=== PATIENT | male | born 1955 | race Asian ===

== ENCOUNTER → 2020-02-04 09:31 | Outpatient (BNVA) | payer OTHER, SELFPAY | PROVIDERS: PCP Internal Medicine; Referring Provider Internal Medicine; Visit Provider Orthopaedic Surgery | DX: S83.242D Other tear of medial meniscus, current injury, left knee, subsequent encounter (principal); M25.462 Effusion, left knee | CPT/HCPCS: 20610; 99212; J1100 ==

== ENCOUNTER 2020-03-04 14:27 | Outpatient (REF) | payer OTHER, SELFPAY ==
[2020-03-04 16:07] LABS: MANUAL DIFF FLAG NO
[2020-03-04 16:12] LABS: Basophils Percent Auto 0.2 % (0-2); Eosinophils Absolute Auto 0.1 X10*3/uL (0.0-0.4); Eosinophils Percent Auto 1.7 % (0-4); Hematocrit 48.9 % (42-52); Hemoglobin 15.7 g/dl (14.0-18.0); Imm Gran Abs Auto 0.03 X10*3/uL (0.00-0.03); Imm Gran Pct Auto 0.4 % (0.0-0.4); Lymphocytes Absolute Auto 1.2 X10*3/uL (1.2-4.9); Lymphocytes Percent Auto 14.2 % (20-40); Mean Corpuscular HGB Conc 32.1 g/dl (31.0-36.0); Mean Corpuscular Hemoglobin 30.4 pg (27.0-33.0); Mean Corpuscular Volume 94.6 fL (80-98); Mean Platelet Volume 9.1 fL (9.4-12.4); Monocytes Absolute Auto 0.3 X10*3/uL (0.1-1.2); Monocytes Percent Auto 3.1 % (2-11); Neutrophils Absolute Auto 6.6 X10*3/uL (2.0-8.3); Neutrophils Percent Auto 80.4 % (45-73); Platelet Count 294 X10*3/uL (160-400); Red Blood Count 5.17 X10*6/uL (4.60-5.80); Red Cell Distribution Width 12.7 % (11.0-16.0); White Blood Count 8.2 X10*3/uL (4.8-10.8)
[2020-03-05 17:07] LABS: Immunoglobulin E 138 kU/L (<OR=114)
== END 2020-03-04 14:28 | disposition home or self-care (01) ==
LOC: HO.LAB 14:27
PROVIDERS: PCP Internal Medicine; Referring Provider Internal Medicine; Visit Provider Internal Medicine
DX: J45.50 Severe persistent asthma, uncomplicated (principal); T78.40XA Allergy, unspecified, initial encounter
CPT/HCPCS: 36415; 82785; 85025; 99202

== ENCOUNTER 2020-03-18 08:51 | Outpatient (REF) | payer OTHER, SELFPAY ==
--- NOTE | 2020-03-18 17:34 | PFT_ITS ---
INDICATIONS: Asthma. SPIROMETRY: The FEV1 to FVC of 48% with FEV1 of 1.56 L, which is 45% predicted, an FVC of 3.27 L which is 70% predicted with a maximum voluntary ventilation of 41% predicted. LUNG VOLUMES: Total lung capacity of 82% predicted. DIFFUSION CAPACITY: DLCO 62% predicted. COMPARISONS: None available. INTERPRETATION: There is an obstructive ventilatory defect consistent with severe COPD. The patient does have a significant response to bronchodilators and does have a history of asthma suggesting asthma, COPD, overlap syndrome. There is also moderate to severe decrease in maximum voluntary ventilation secondary to likely deconditioning. Lung volumes demonstrate low normal total lung capacity and mild to moderate decrease in the diffusion capacity. Clinical correlation warranted. It demonstrates mild to moderate diffusion impairment. COMPARISONS: None. Michael Limon MD MR/MODL / [id number]
== END 2020-03-18 08:52 | disposition home or self-care (01) ==
LOC: HO.RESP 08:51
PROVIDERS: Visit Provider Internal Medicine
DX: J45.50 Severe persistent asthma, uncomplicated (principal)
CPT/HCPCS: 94060; 94727; 94729; 99212

== ENCOUNTER 2020-06-17 06:15 | Outpatient (REF) | payer OTHER, SELFPAY ==
[2020-06-17 07:46] LABS: Glucose Fasting 110 mg/dL (60-99)
== END 2020-06-17 06:16 | disposition home or self-care (01) ==
LOC: HO.LAB 06:15
PROVIDERS: PCP Internal Medicine; Visit Provider Internal Medicine
DX: R63.1 Polydipsia (principal)
CPT/HCPCS: 36415; 82947

== ENCOUNTER 2020-06-19 10:28 | Outpatient (REF) | payer OTHER, SELFPAY ==
[2020-06-19 11:25] LABS: Glucose Urine UA NEG (NEG); Leukocyte Esterase Urine NEG (NEG); Nitrite Urine NEG (NEG); Urine Blood NEG (NEG); Urine Ketones NEG (NEG); Urine Protein NEG (NEG-TRACE)
[2020-06-19 11:26] LABS: Appearance Urine CLEAR; Color Urine YELLOW
[2020-06-19 12:14] LABS: Estimated Average Glucose 117 mg/dL; Hemoglobin A1c % 5.7 %
[2020-06-19 12:17] LABS: Alanine Aminotransferase 26 U/L (0-40); Albumin Level 4.7 g/dL (3.5-5.0); Alkaline Phosphatase 47 U/L (39-117); Anion Gap 17 (12-20); Aspartate Amino Transferase 28 U/L (5-37); Bilirubin Total 1.2 mg/dL (0.0-1.0); Blood Urea Nitrogen 17 mg/dL (9-16); Calcium 9.7 mg/dL (8.4-10.2); Carbon Dioxide 26 mmol/L (22-29); Chloride 103 mmol/L (96-108); Estimated Glomerular Filt Rate > 60; Glucose Random 90 mg/dL (60-115); Potassium 4.7 mmol/L (3.3-5.1); Sodium 141 mmol/L (135-145); Total Protein 7.7 g/dL (6.5-8.0)
[2020-06-19 12:18] LABS: Creatinine Urine 62.65 mg/dL; Microalbumin Urine < 5.0 mg/L
[2020-06-19 12:39] LABS: Prostate Specific Antigen 1.71 ng/mL (<0.05-4.0); TSH reflex Free T4 0.72 uIU/mL (0.32-4.0)
== END 2020-06-19 10:29 | disposition home or self-care (01) ==
LOC: HO.LAB 10:28
PROVIDERS: PCP Internal Medicine; Visit Provider Internal Medicine
DX: E03.9 Hypothyroidism, unspecified (principal); I10 Essential (primary) hypertension; R63.1 Polydipsia; R35.8 Other polyuria; R51.9 Headache, unspecified; Z12.5 Encounter for screening for malignant neoplasm of prostate
CPT/HCPCS: 36415; 80053; 81003; 82043; 83036; 84153; 84443

== ENCOUNTER → 2020-10-14 10:59 | Outpatient (BNVA) | payer MEDICARE, OTHER, SELFPAY | PROVIDERS: Visit Provider Physician Assistant | DX: S83.242D Other tear of medial meniscus, current injury, left knee, subsequent encounter (principal) | CPT/HCPCS: 99212 ==

== ENCOUNTER → 2022-09-14 14:35 | Outpatient (BNVA) | payer MEDICARE, SELFPAY | PROVIDERS: Visit Provider Nurse Practitioner Family | DX: J44.1 Chronic obstructive pulmonary disease with (acute) exacerbation (principal) | CPT/HCPCS: 94640; 99212 ==

== ENCOUNTER 2023-07-07 09:28 | Outpatient (REF) | payer MEDICARE, SELFPAY ==
--- NOTE | ~2023-07-07 | XR_ITS ---
EXAMINATION: XR SHOULDER, RIGHT CLINICAL INFORMATION: Pain COMPARISON: None available. TECHNIQUE: AP external rotation, Grashey, scapular Y, and axillary views of the right shoulder. FINDINGS: The bones and soft tissues are normal. No fracture. Glenohumeral and acromioclavicular alignment is anatomic with normal joint space. No abnormal soft tissue calcifications. XR/XR shoulder RT min 2V IMPRESSION: Normal right shoulder.
== END 2023-07-07 09:29 | disposition home or self-care (01) ==
LOC: HO.HOSX 09:28
PROVIDERS: Visit Provider Physician Assistant
DX: M25.511 Pain in right shoulder (principal); M75.101 Unspecified rotator cuff tear or rupture of right shoulder, not specified as traumatic; R73.03 Prediabetes
CPT/HCPCS: 73030; 99212

== ENCOUNTER 2023-07-07 10:16 | Outpatient (AMB) | payer MEDICARE, SELFPAY ==
--- NOTE | 2023-07-07 10:19 | MHC.OFFVIS ---
Intake Vital Signs 07/07/23 10:28 Height 5 ft 10 in Weight 190 lb BMI 27.3 Handedness Right Intake Visit Reasons: New Prob - RT shoulder pain Intake Note: Leydi is a 67 year old right hand dominant male who presents today for a evaluation of his right shoulder pain. Patient reports ongoing/ off and on pain for about 2 months. He states that he woke up with pain, no history of injury. He states that his pain starts on the anterior aspect of the shoulder, yet when he moves a certain way his pain goes to the back of the shoulder. Patient informed me that his pain first started with moving down to his elbow and down his arm. Allergies Seasonal Allergies Allergy (Mild, Verified 07/07/23 10:31) sneezing and itchiness HPI New Prob - RT shoulder pain HPI Details 67-year-old male who presents in the office today for an evaluation of right shoulder pain. Patient reports intermittent pain for the past 2 months. He states he woke up with the pain and does not recall any known injury. He claims the pain is on along the anterior aspect of the right shoulder, but does states increased pain with certain movement; these movements cause radiating pain to the back of his shoulder. Patient states when the pain started it would radiate down to his right elbow and down the arm. [facility] Medical History Allergic rhinitis Allergies Asthma Asthma-COPD overlap syndrome Chronic GERD Hypertension, essential Hypothyroidism Lipid disorder Tear of medial meniscus of left knee Surgical History No pertinent past surgical history Family History Father No problems noted. Mother No problems noted. Brother No problems noted. Sister No problems noted. Sister No problems noted. Sister No problems noted. Son No problems noted. Daughter No problems noted. Social History (Updated 07/07/23 @ 10:32 by Donte Limon) Alcohol intake: never Patient Tobacco Use Status: Never used Tobacco Current occupational status: retired Current occupation: Right Handed Review of Systems Const All systems reviewed & are unremarkable except as noted in HPI and below Physical Exam Vital Signs: BMI result Body Mass Index 27.3 Const General: cooperative, healthy appearing and no acute distress Resp Effort & Inspection: normal respiratory effort and able to speak in complete sentences Cardio Rate: regular rate Peripheral pulses: Peripheral pulses 2+ throughout GI Palpation (GI): Soft to palpation Skin Lesions: no lesions Rashes: no rashes Extrem Other: Right shoulder: Forward flexion to end range. Abduction to 90 degrees with pain. Able to reach T-12 with pain. Pain with cross-body reach. Negative empty can. Negative drop arm. NVI. Assessment & Plan Assessment & Plan (1) Painful arc syndrome of right shoulder: Code(s): M75.101 - Unspecified rotator cuff tear or rupture of right shoulder, not specified as traumatic (2) Pre-diabetes: Code(s): R73.03 - Prediabetes Plan Mr. Valle is a 67-year-old male who presents in the office today for an evaluation of right shoulder pain. Patient reports intermittent pain for the past 2 months. He states he woke up with the pain and does not recall any known injury. He claims the pain is on along the anterior aspect of the right shoulder, but does states increased pain with certain movement; these movements cause radiating pain to the back of his shoulder. Patient states when the pain started it would radiate down to his right elbow and down the arm. We discussed the role of cortisone injections which he would like to move forward with. However, at this time due to latter-day reasons he is fasting and is unable to have this done today. He would like to return after his fasting is over. A referral to physical therapy to work on ROM and modalities with strengthening was ordered today. Follow up will be when the patient is ready to call and schedule a cortisone injection, or sooner if needed. X-rays of the right shoulder which were obtained while in the office today and were reviewed by me, Diana Fry PA-C, revealed no acute fracture or dislocation. Orders: Orders XR shoulder RT min 2V Today M25.519 - Pain in unspecified shoulder PT Evaluation and Treatment Today M75.101 - Unspecified rotator cuff tear or rupture of right shoulder, not specified as traumatic Patient Instructions: Scribed by Anahi Kimble medical office supervisor, for Diana Fry PA-C on 07/07/2023 at 10:22 am, EST. Coding Level of Care Code New Pt Level 4 (92988) Diagnoses Painful arc syndrome of right shoulder M75.101 Pre-diabetes R73.03
[2023-07-07 10:28] VITALS: BMI 27.3
== END 2023-07-07 11:06 | disposition home or self-care (01) ==
PROVIDERS: Visit Provider Physician Assistant
DX: M75.101 Unspecified rotator cuff tear or rupture of right shoulder, not specified as traumatic (principal); R73.03 Prediabetes
CPT/HCPCS: 99214

== ENCOUNTER 2023-07-29 09:19 | Outpatient (AMB) | payer MEDICARE, SELFPAY ==
--- NOTE | 2023-07-29 09:25 | A.OFFVIS_ITS ---
Intake Intake Visit Reasons: right shoulder cortisone injection Intake Note: Leydi is a 67 year old right hand dominant male who presents today for a cortisone injection for his right shoulder. Allergies Seasonal Allergies Allergy (Mild, Verified 07/29/23 09:30) sneezing and itchiness HPI right shoulder cortisone injection HPI Details 67-year-old right hand dominant male who presents in the office today for a follow up of right shoulder pain. I last saw the patient in the office on 07/07/2023, when we discussed moving forward with cortisone injections. A referral for PT was also placed at this time. [facility] Medical History Allergic rhinitis Allergies Asthma Asthma-COPD overlap syndrome Chronic GERD Hypertension, essential Hypothyroidism Lipid disorder Tear of medial meniscus of left knee Surgical History No pertinent past surgical history Family History Father No problems noted. Mother No problems noted. Brother No problems noted. Sister No problems noted. Sister No problems noted. Sister No problems noted. Son No problems noted. Daughter No problems noted. Social History (Updated 07/07/23 @ 10:32 by Donte Limon) Alcohol intake: never Patient Tobacco Use Status: Never used Tobacco Current occupational status: retired Current occupation: Right Handed Review of Systems Const All systems reviewed & are unremarkable except as noted in HPI and below Physical Exam Const General: cooperative, healthy appearing and no acute distress Resp Effort & Inspection: normal respiratory effort and able to speak in complete sentences Cardio Rate: regular rate Peripheral pulses: Peripheral pulses 2+ throughout GI Palpation (GI): Soft to palpation Skin Lesions: no lesions Rashes: no rashes Extrem Other: Right shoulder: Forward flexion to end range. Abduction to 90 degrees with pain. Able to reach T-12 with pain. Pain with cross-body reach. Negative empty can. Negative drop arm. NVI. Office Procedures Joint Injection/Drain Joint Injection/Drain Primary Site: right shoulder Prep: site was prepped using aseptic technique, ethochloride spray was applied and injection warnings given Injected: 80 mg of, DepoMedrol, with 8 mL of (2% plain lido ) and in the lundberg bcromial space Approach Used: posterolateral Procedure: The patient tolerated the procedure well, but had some pain with the injection and there was some relief with the local anesthesia Coding 18260 - Large joint Procedure code (CPT) selection complete Assessment & Plan Assessment & Plan (1) Painful arc syndrome of right shoulder: Code(s): M75.101 - Unspecified rotator cuff tear or rupture of right shoulder, not specified as traumatic (2) Pre-diabetes: Code(s): R73.03 - Prediabetes Plan Mr. Valle is a 67-year-old right hand dominant male who presents in the office today for a follow up of right shoulder pain. I last saw the patient in the office on 07/07/2023, when we discussed moving forward with cortisone injections. A referral for PT was also placed at this time. The patient was offered a cortisone injection in the right shoulder with 80 mg of DepoMedrol. The patient was explained the risk, benefits, and alternatives to receiving this injection. After receiving consent for the injection, the patient had the procedure done while in office today. The patient tolerated the procedure well with no complications. Due to the patient?s history of prediabetes, they were instructed to monitor his blood glucose level. The patient was informed that they could see a rise in their numbers and if the numbers became too high, they were instructed to call their PCP. The patient was also informed that they could have facial flushing as a side effect of the injection but this will pass. Follow up will be PRN, or sooner if needed. Patient Instructions: Scribed by Anahi Kimble medical office receptionist assistant, for Diana Fry PA-C on 07/29/2023 at 9:23 am, EST. Coding Level of Care Code Est Pt Level 4 (56092) Diagnoses Painful arc syndrome of right shoulder M75.101 Pre-diabetes R73.03 CPT Codes Coding - 67630 Large joint: 78967 - Large joint ([id number])
== END 2023-07-29 09:35 | disposition home or self-care (01) ==
PROVIDERS: Visit Provider Physician Assistant
DX: M75.101 Unspecified rotator cuff tear or rupture of right shoulder, not specified as traumatic (principal); R73.03 Prediabetes
CPT/HCPCS: 20610

== ENCOUNTER → 2023-07-29 09:19 | Outpatient (BNVA) | payer MEDICARE, SELFPAY | PROVIDERS: Visit Provider Physician Assistant | DX: M75.101 Unspecified rotator cuff tear or rupture of right shoulder, not specified as traumatic (principal); R73.03 Prediabetes | CPT/HCPCS: 20610; J1010; J1040 ==

== ENCOUNTER 2023-08-30 10:00 | Outpatient (RCR) | payer MEDICARE, SELFPAY ==
--- NOTE | 2023-08-03 14:55 | MHC.PT.EP ---
[facility] [place] [facility] [place] [facility] [place] Office [address] Amanda Farley [address] [phone] F: [phone] F: [phone] F: [phone] F: [phone] Physical Therapy Plan of Care Date of Evaluation: 08/03/23 Date of Surgery: Diagnosis: This is a 67 yo male presenting to skilled PT with a script for painful arc syndrome of R shoulder. Assessment: This is a 67 yo male presenting to skilled PT with a script for painful arc syndrome of R shoulder. This patient is being followed by [facility] [place] [place] ortho. On 07/28 he presented in the office for a follow up of right shoulder pain where he was given a cortisone injection (mild relief). A referral for PT was also placed at this time. Patient reports on going pain for about 2 months. He states that he woke up with pain, no history of injury noted. He states that his pain starts on the anterior aspect of the shoulder and radiates into the mid bicep area. Pain is sharp and achy. Pain increases with reaching, UB ADLs and sleeping. Pain decreases at rest. Assessment reveals pain that ranges from up to a 6/10 at the worst. Patient demos decreased R shoulder ROM, strength of B shoulder's (L>R), denies TTP but demos impaired posture with forward head and rounded shoulders and anteriorly translating R GHJ. Based on functional limitations, impaired QOL and pain tolerance patient is a good candidate for skilled PT 2x/wk for 4wks however he would like 1 follow up for now for further HEP ed and call as needed following this. Frequency and Duration: The patient will be seen 2x/wk for 4wks Short Term Goals: (In 2 weeks) Demo I with HEP Improve shoulder AROM by at least 10 degs Demo proper scapular recruitment with appropriate shoulder strengthening exercises [facility]ci Goals: (in 4 wks) Improve shoulder nonpainful AROM to almost near equal B Demo at least 1 grade improvement in MMT for shoulder Improve SPADI by at least 10 points Improve overall functional QOL by at least 50% Treatment Plan: Modalities to reduce pain, spasms and effusion. Manual therapy to restore motion and function. Therapeutic exercise to improve strength and flexibility. Neuromuscular re-education for posture and balance. Therapeutic activities to return to functional activities of daily living. Electronically signed by: Lisseth Price PT Please sign and return to therapist. Thank you for your referral.
--- NOTE | 2023-10-03 08:40 | MHC.PT.DC ---
[facility] [place] [facility] [place] Office [place] Office [address] Amanda Farley [address] [phone] F: [phone] F: [phone] F: [phone] F: [phone] Physical Therapy Discharge Report Diagnosis: This is a 67 yo male presenting to skilled PT with a script for painful arc syndrome of R shoulder. Date of Surgery: Date of Evaluation: 08/03/23 Date of Discharge: 10/03/23 Treatments to Date: 5 Cancellations to Date: 0 No Shows to Date: Discharge Status: Achieved Goals Improved Function Independent with HEP Discharge Summary: 08/29: Patient demos normal shoulder ROM and MMT after a few weeks of consistent HEP. He has improved his function, his sleeping tolerance and his scapular recruitment. We spent time today on cervical posturing, HEP for cervical stretching and trigger point release. He has met his PT goals and is appropriate for DC at this time. He is happy with his progress, motivated to continue on his own and was educated to call us if anything changes. DC to HEP. Electronically signed by: Lisseth Price, PT Please sign and return to therapist. Thank you for your referral.
== END 2023-10-03 08:40 | disposition home or self-care (01) ==
LOC: HO.PTCHIC 10:00
PROVIDERS: PCP Internal Medicine; Visit Provider Physician Assistant
DX: M75.101 Unspecified rotator cuff tear or rupture of right shoulder, not specified as traumatic (principal)
CPT/HCPCS: 97110; 97162